=== PATIENT | female | born 1995 | race African-American/Black ===

== ENCOUNTER 2019-04-24 10:55 | Emergency (ER) | payer OTHER ==
[2019-04-24 11:06] VITALS: BP 130/82; PULSE 104; TEMP 98.1; BMI 37.8
[2019-04-24] MEDS ORDERED: ACETAMINOPHEN 500 MG TABLET (FP) PO ONE (12:23)
[2019-04-24] MEDS ORDERED: DEXAMETHASONE LIQUID 0.5 MG/5 ML PO ONE (12:23)
[2019-04-24] MEDS ORDERED: DEXAMETHASONE SOD PHOSPHATE 10 MG/1 ML VIAL ONE (12:34)
[2019-04-24] MEDS ORDERED: ALBUTEROL SO4 2.5/IPRATROPIUM 0.5 INH SOL 3 ML VIAL.NEB. NEB ONE (12:35)
[2019-04-24] MEDS ORDERED: ACETAMINOPHEN 500 MG TABLET (FP) ONE (12:35)
[2019-04-24] MEDS: ALBUTEROL SO4 2.5/IPRATROPIUM 0.5 INH SOL 3 ML VIAL.NEB. NEB SCH ×4 (12:39→13:19)
--- NOTE | 2019-04-24 13:25 | PDOC ---
History of Present Illness - General Chief Complaint: Respiratory Stated Complaint: flu Symptoms Time Seen by Provider: 04/24/19 12:08 - History of Present Illness Initial Comments: 04/24/19 13:18 23-year-old female with a past medical history of asthma presents for evaluation of flulike symptoms x3 days with positive flu contact at home Past History - Past History Allergies/Adverse Reactions: Allergies ibuprofen [From Motrin] Allergy (Verified 04/24/19 11:05) - Social History Smoking Status: Never smoked Review of Systems - Review of Systems Constitutional: Yes: Fever HEENTM: Yes: Nose Congestion Respiratory: Yes: Cough *Physical Exam - Vital Signs Last Vital Signs Temp Pulse Resp BP Pulse Ox 98.1 F 104 H 16 130/82 100 04/24/19 11:03 04/24/19 11:03 04/24/19 11:03 04/24/19 11:03 04/24/19 11:03 - Physical Exam 04/24/19 13:22 GENERAL: The patient is awake, alert, and fully oriented, in no acute distress. HEAD: Normal with no signs of trauma. EYES: sclera anicteric, conjunctiva clear. ENT: Ears normal tympanic membranes normal oropharynx clear uvula midline NECK: Normal range of motion LUNGS: Breath sounds equal, clear to auscultation bilaterally. No wheezes, and no crackles. HEART: S1 and S2 without murmur, rub or gallop. ABDOMEN: Soft, nontender, normoactive bowel sounds. No guarding, no rebound. No masses. EXTREMITIES: Normal range of motion, no edema. No clubbing or cyanosis. No cords, erythema, or tenderness. NEUROLOGICAL: Cranial nerves II through XII grossly intact. Normal speech, normal gait. PSYCH: Normal mood, normal affect. SKIN: Warm, Dry, normal turgor, no rashes or lesions noted. ED Treatment Course - Medications Given in the ED: ED Medications Discontinued Medications Generic Name Dose Route Start Last Admin Trade Name Freq PRN Reason Stop Dose Admin Acetaminophen 1,000 mg 04/24/19 12:23 04/24/19 12:39 Tylenol - PO 04/24/19 12:24 Not Given ONCE ONE Albuterol/Ipratropium 1 amp 04/24/19 12:30 04/24/19 13:04 Duoneb - NEB 04/24/19 13:16 1 amp Q15M ANABEL Administration Dexamethasone 10 mg 04/24/19 12:23 04/24/19 12:39 Decadron Liquid - PO 04/24/19 12:24 10 mg ONCE ONE Administration Medical Decision Making - Medical Decision Making 04/24/19 13:25 Positive influenza out of the treatment window for Tamiflu supportive care with Tylenol and Motrin follow-up with retail account manager. Patient states she could benefit from a DuoNeb treatment I was giving her treatments and she is feeling much better. Also given her Decadron Discharge - Discharge Information Problems reviewed: Yes Clinical Impression/Diagnosis: Influenza, Asthma exacerbation Condition: Stable - Follow up/Referral Referrals: Jamila Vernon [Primary Care Provider] - - Patient Discharge Instructions Patient Printed Discharge Instructions: Influenza, DI for Influenza -- Adult Additional Instructions: Tylenol and Motrin for fever as directed. Continue with your home albuterol as directed. Return to the emergency room for worsening symptoms. Without fail follow-up with your primary care physician in 2 to 3 days for further evaluation and treatment options. - Post Discharge Activity
== END 2019-04-24 13:52 | disposition home or self-care (01) ==
LOC: JERFT 10:55
PROC: 3E0F7GC Introduction of Other Therapeutic Substance into Respiratory Tract, Via Natural or Artificial Opening (ICD-10-PCS; principal; 2019-04-24)
DX: J10.1 Influenza due to other identified influenza virus with other respiratory manifestations (principal); J45.901 Unspecified asthma with (acute) exacerbation
CPT/HCPCS: 87804; 94640; 99282-25

== ENCOUNTER 2021-04-21 18:49 | Emergency (ER) | payer OTHER ==
[2021-04-21 20:09] VITALS: BP 138/78; PULSE 78; TEMP 98.7; BMI 37.8
[2021-04-21] MEDS ORDERED: ALBUTEROL SO4 2.5/IPRATROPIUM 0.5 INH SOL 3 ML VIAL.NEB. NEB SCH (21:30)
[2021-04-23 17:09] LABS: SARS-CoV-2 NAA Detected (Not Detected)
== END 2021-04-21 23:15 | disposition home or self-care (01) ==
LOC: JER 18:49
PROC: 3E0F7GC Introduction of Other Therapeutic Substance into Respiratory Tract, Via Natural or Artificial Opening (ICD-10-PCS; principal; 2021-04-21)
DX: J45.20 Mild intermittent asthma, uncomplicated (principal); J02.9 Acute pharyngitis, unspecified; R05.1 Acute cough
CPT/HCPCS: 87804; 99283-25; C9803; U0003; U0005

== ENCOUNTER 2024-03-22 06:15 | Inpatient (IN) | payer OTHER ==
[2024-03-22] MEDS: LACTATED RINGERS SOLUTION 500 ML IV SCH (06:40)
[2024-03-22 06:42] VITALS: BMI 42.9
[2024-03-22] MEDS: CITRIC ACID/SODIUM CITRATE 30 ML UNIT-DOSE CUP PO ONE (07:31)
[2024-03-22] MEDS: LACTATED RINGERS SOLUTION 1,000 ML IV SCH (07:32)
[2024-03-22] MEDS ORDERED: FENTANYL CITRATE/PF 50 MCG/ML VIAL ONE (08:11)
[2024-03-22] MEDS ORDERED: morphine SULFATE/PF 1 MG/2 ML (2cc Syringe - QUVA) ONE (08:11)
[2024-03-22] MEDS ORDERED: PHENYLEPHRINE HCL 10 MG/1 ML SINGLE DOSE VIAL ONE (09:06)
[2024-03-22] MEDS ORDERED: ONDANSETRON 4 MG/2 ML VIAL ONE ×2 (09:06→09:30)
[2024-03-22] MEDS ORDERED: OXYTOCIN 10 UNITS/ML VIAL ONE (09:06)
[2024-03-22] MEDS ORDERED: ceFAZolin SODIUM 1 GM VIAL ONE (09:06)
[2024-03-22] MEDS ORDERED: METHYLERGONOVINE MALEATE 0.2 MG/1 ML AMP IM PRN (09:48)
[2024-03-22] MEDS ORDERED: IBUPROFEN 600 MG TABLET (FP) PO PRN (09:48)
[2024-03-22] MEDS: OXYTOCIN 20 UNITS in 0.9% NS 20 UNIT/1,000 ML INFUS.BAG IV SCH (10:15)
[2024-03-22] MEDS ORDERED: ACETAMINOPHEN INJECTION 100 ML ONE (10:54)
[2024-03-22] MEDS: ACETAMINOPHEN 1000 MG/100 ML BAG IVPB PRN (10:57)
[2024-03-22] MEDS: PRENATAL VITAMINS W/ FOLIC ACID TABLET (FP) PO SCH (11:03)
[2024-03-22] MEDS ORDERED: ONDANSETRON 4 MG/2 ML VIAL IVPUSH PRN (13:26)
[2024-03-22] MEDS: morphine SULFATE/PF 1 MG/2 ML (2cc Syringe - QUVA) IT ONE (13:31)
[2024-03-22] MEDS: oxyCODONE HCL 5 MG TABLET PO PRN (13:54)
[2024-03-22] MEDS: ACETAMINOPHEN 1000 MG/100 ML BAG IVPB SCH (17:47)
[2024-03-23] MEDS: oxyCODONE HCL 5 MG TABLET PO PRN (02:22)
[2024-03-23 07:27] LABS: BASO % 0.4 % (0-2.0); EOS % 2.3 % (0-4.5); HEMATOCRIT 34.7 % (32.4-45.2); HEMOGLOBIN 11.3 GM/dL (10.7-15.3); LYMPH % 20.8 % (8-40); MCH 32.4 pg (25.7-33.7); MCHC 32.7 g/dl (32.0-36.0); MEAN CELL VOLUME 99.1 fl (80-96); MEAN PLT VOLUME 9.6 fl (7.5-11.1); MONO % 9.4 % (3.8-10.2); NEUT % 67.1 % (42.8-82.8); PLATELET COUNT 139 10^3/uL (134-434); RDW 13.4 % (11.6-15.6); WHITE BLOOD COUNT 8.4 K/mm3 (4.0-10.0)
[2024-03-23] MEDS: FERROUS SO4 325 MG TABLET (FP) PO SCH (09:24)
[2024-03-23] MEDS ORDERED: BISACODYL 10 MG SUPP.RECT RC PRN (09:49)
[2024-03-23] MEDS: SIMETHICONE 80 MG TAB.CHEW (FP) PO PRN (09:54)
[2024-03-23] MEDS: ACETAMINOPHEN 325 MG TABLET (FP) PO PRN (14:34)
[2024-03-23] MEDS: SENNOSIDES/DOCUSATE COMBO (SENNA PLUS) TABLET (UD) PO PRN (20:49)
[2024-03-23] MEDS: ZOLPIDEM TARTRATE 5 MG TABLET PO PRN (22:11)
[2024-03-23 22:53] VITALS: RESP 18
[2024-03-25] MEDS: oxyCODONE HCL 5 MG TABLET PO PRN (08:19)
[2024-03-25 08:59] VITALS: BP 131/77; PULSE 74; TEMP 97.9
== END 2024-03-25 16:02 | disposition home or self-care (01) | DRG 540 ==
LOC: JLDR 06:15 → J3W 12:10
PROVIDERS: ADMIT Obstetrics & Gynecology; ATTEND Obstetrics & Gynecology
PROC: 10D00Z1 Extraction of Products of Conception, Low, Open Approach (ICD-10-PCS; principal; 2024-03-22)
DX: O34.211 Maternal care for low transverse scar from previous cesarean delivery (principal); N85.8 Other specified noninflammatory disorders of uterus; O99.214 Obesity complicating childbirth; Z3A.39 39 weeks gestation of pregnancy; Z37.0 Single live birth
CPT/HCPCS: 36415; 59409; 80053; 85025; 85610; 85730; 86780; 86803; 86850; 86900; 86901; 87389; 87517; 88307-TC; 94010; J0131